=== PATIENT | female | born 1985 | race Caucasian/White ===

== ENCOUNTER → 2017-07-10 10:46 | Outpatient (CLI) | payer OTHER, SELFPAY ==
--- NOTE | 2017-07-10 10:51 | BI_ITS ---
MAMMOGRAPHY - BILATERAL SCREENING REASON FOR EXAM: Female, 31 years old. Routine annual screening examination. PERTINENT HISTORY: Sister with breast cancer. Mother with breast cancer. Bilateral breast discharge. TECHNIQUE: Digital bilateral breast rc (3D mammographic acquisition) in the CC and MLO projections. 2-D mediolateral oblique (MLO) and craniocaudad (CC) views of both breasts were obtained. CAD: Full Field Digital Mammography with Computer Added Detection was performed. COMPARISON: None. Baseline examination. FINDINGS: Breast Composition: The breasts are heterogeneously dense, which may obscure small masses. There are no dominant masses or suspicious calcifications. Focal area of architectural distortion in the superior anterior lateral portion of the right breast. Additional views recommended including 90 degree lateral view of the right breast as well as compression spot views in the craniocaudad view. No other significant abnormalities are identified. BI/SCREENING MAMM (CAD), BILAT IMPRESSION: Focal area of architectural distortion in the right breast as described. The patient will be recalled for additional views. Recall Side: Right Breast ASSESSMENT CATEGORY: BIRADS Category 0: Incomplete. Need additional imaging evaluation. A letter regarding these results will be sent to the patient by the facility within 30 days. Approximately 10% of breast cancers are not detected by mammography. A normal mammogram should not delay biopsy of a clinically suspicious abnormality. [id number] Electronically Signed: Trey Castaneda MD at 8:31 EDT Tel [phone], Service support ,
== END ==
DX: Z12.31 Encounter for screening mammogram for malignant neoplasm of breast (principal); Z84.81 Family history of carrier of genetic disease
CPT/HCPCS: 77063; 77067

== ENCOUNTER → 2017-08-20 13:58 | Outpatient (CLI) | payer SELFPAY ==
--- NOTE | 2017-08-20 14:08 | BI_ITS ---
MAMMOGRAPHY - UNILATERAL DIAGNOSTIC: RIGHT BREAST REASON FOR EXAM: Female, 31 years old. Abnormal screening mammogram. PERTINENT HISTORY: TECHNIQUE: Compression spot views of the right breast were obtained. CAD: Full Field Digital Mammography with Computer Added Detection was performed. COMPARISON: Comparison is made with prior study dated July 10, 2017. FINDINGS: Breast Composition: The breasts are heterogeneously dense, which may obscure small masses. The previously seen questionable area of architectural distortion on the craniocaudad view of the right breast is not seen at this time. Routine annual mammographic follow-up is recommended. No other significant abnormalities are identified. BI/DIAG MAMM W/CAD, UNILAT IMPRESSION: Stable unilateral diagnostic mammogram. One year follow-up mammogram recommended. (A) ASSESSMENT CATEGORY: BIRADS Category 2: Benign. A letter regarding these results will be sent to the patient by the facility within 30 days. Approximately 10% of breast cancers are not detected by mammography. A normal mammogram should not delay biopsy of a clinically suspicious abnormality. Electronically Signed: Trey Castaneda MD at 15:16 EDT Tel [phone], Service support ,
== END ==
DX: R92.2 Inconclusive mammogram (principal)
CPT/HCPCS: 77065

== ENCOUNTER → 2019-11-22 11:15 | Outpatient (CLI) | payer BC, SELFPAY | PROVIDERS: Referring Provider Nurse Practitioner Family; Visit Provider Nurse Practitioner Family | DX: E55.9 Vitamin D deficiency, unspecified (principal) | CPT/HCPCS: 36415; 82306 ==